=== PATIENT | female | born 1995 | race Caucasian/White ===

== ENCOUNTER 2024-07-20 08:10 | Outpatient (RCR) | payer OTHER, SELFPAY | END 2024-07-20 09:31 | disposition home or self-care (01) | LOC: HO.PT 08:10 | PROVIDERS: PCP Nurse Practitioner Family; Visit Provider Physician Assistant Medical | DX: M54.50 Low back pain, unspecified (principal) | CPT/HCPCS: 97014; 97110; 97140; 97161; 97530 ==